=== PATIENT | female | born 1985 | race Caucasian/White ===

== ENCOUNTER 2016-09-09 22:15 | Inpatient (IN) | payer BC ==
[~2016-09-09] VITALS: Ht 165.1 cm; Wt 97.1 kg
--- NOTE | 2016-09-09 22:40 | NUR ---
CHAPERONED DR WHITE DURING PELVIC EXAM
[2016-09-09 23:05] LABS: UA SPECIFIC GRAVITY 1.025 (1.005-1.035); microscopic required? YES; urine erythrocyte 2+ (NEGATIVE)
[2016-09-09 23:12] LABS: BASOPHIL % 0.4 % (0-2); PLATELET COUNT 266 x10^3mcL (130-400)
[2016-09-09 23:13] LABS: RED CELL DISTRIBUTION WIDTH 14.9 % (11.5-14.5)
[2016-09-09 23:16] LABS: CALCIUM 8.3 mg/dL (8.5-10.1); CHLORIDE SERUM 107 mmol/L (98-107); CREATININE SERUM 0.9 mg/dL (0.6-1.0); GFR1 > 60 mL/min; GLUCOSE SERUM 73 mg/dL (74-106); POTASSIUM SERUM 3.3 mmol/L (3.5-5.1); SODIUM SERUM 141 mmol/L (136-145)
--- NOTE | 2016-09-09 23:19 | NUR ---
PT MEDICATED PER MD ORDERS FOR PAIN.
[2016-09-09 23:20] LABS: ALBUMIN 3.6 g/dL (3.4-5.0); ALKALINE PHOSPHATASE 77 U/L (46-116); ALT/SGPT 15 U/L (14-59); AMYLASE 66 U/L (25-115); AST/SGOT 14 U/L (15-37); BILIRUBIN TOTAL 0.1 mg/dL (0.20-1.00); LIPASE 200 IU/L (73-393); TOTAL PROTEIN, SERUM 7.8 g/dL (6.4-8.2)
--- NOTE | 2016-09-10 00:04 | NUR ---
PATIENT HAD CT AND RETURN TO THE ROOM EXPRESS SHE STILL HAS PAIN
--- NOTE | 2016-09-10 01:48 | NUR ---
PT MEDICATED PER MD ORDERS FOR PAIN
[2016-09-10] MEDS ORDERED: PROVENTIL0.09 MG/A1 INH (01:50)
--- NOTE | 2016-09-10 02:09 | NUR ---
REPORT WAS GIVEN TO ESTER. PATIENT TRANSPORTED TO ROOM 203B.
--- NOTE | 2016-09-10 02:30 | NUR ---
RECEIVED FROM ER VIA NNAMDI SIFUENTES. NO RESP DISTRESS NOTED. 118/69, HR 68, RR 18, O2SAT 96% ON RA, AFEBRILE. STS PAIN STARTED ON WEDNESDAY TO RLQ AREA. DENIES NAUSEA. REPORTS PAIN IS RELIEF AFTER PAIN MEDS GIVEN IN ER. TELE#[address] BRP WITH STEADY GAIT NOTED. S/L TO RAC FLUSHED PATENT. CALL LIGHT INSTRUCTED AND PLACED WITHIN EASY REACH, SIDERAILS UP X2.
--- NOTE | 2016-09-10 02:57 | NUR ---
DOCTOR GALLO AT BEDSIDE AT THIS TIME. IVF NS AT 100ML/HR INFUSING AT THIS TIME.
[2016-09-10 03:03] VITALS: BP 118/69
[2016-09-10 03:36] LABS: CHOLESTEROL/HDL RATIO 2.6; PHOSPHOROUS 3.7 mg/dL (2.5-4.9)
[2016-09-10 03:40] LABS: T3 TOTAL 1.18 ng/mL
[2016-09-10 03:41] LABS: FREE T4 0.93 ng/dL (0.76-1.46); FREE THYROXINE INDEX 3.1 ug/dL (1.4-4.5); T4(THYROXINE) 8.9 ug/dL (4.7-13.3)
--- NOTE | 2016-09-10 05:09 | NUR ---
NO ANY DISTRESS THROUGHOUT SHIFT. VSS. MORPHINE 2MG IV GIVEN X1 FOR RLQ WITH GOOD RELIEF. KEPT NPO. IVF NS CONTINUED AT 100ML/HR.
[2016-09-10 05:50] VITALS: BP 105/61
--- NOTE | 2016-09-10 06:50 | NUR ---
DOCTOR FARIA AT BEDSIDE. PATIENT IS INFORMED REGUARDING SURGERY THIS AM. PRE OP CHECK LIST DONE. S/L TO RAC FLUSHED PATENT.
[2016-09-10 07:17] VITALS: BP 102/61
--- NOTE | 2016-09-10 07:18 | NUR ---
REPORT RCD FROM YARI NORMAN. PATIENT TO GO FOR INCARCERATED INCISIONAL HERNIA REPAIR AT 8 AM. CURRENTLY UNDERGOING BILATERAL LOWER EXTREMITY ULTRASOUNDS. WILL MONITOR.
--- NOTE | 2016-09-10 07:45 | NUR ---
A/OX4, REPORTS SOME DIZZIENSS, THINKS DUE TO PAIN MEDICATIONS. SPEECH CLEAR, DENIES HEADACHE, EQUAL HAND KEYBOARDING CLERK, ANSWERS QUESTIONS APPROPRIATELY. TELE 6, DENIES CHEST PAIN. PALPABLE PERIPHERAL PULSES, NO EDEMA. LUNGS CTA RUBEN, REG RESPS, DENIES SHORTNESS OF BREATH. ABD OBESE, TENDER TO LOWER ABDOMEN, SLIGHT NAUSEA, NO VOMITING. BM YESTERDAY, NORMAL. NO COMPLAINTS. AMBULATORY. SKIN INTACT. 7/10 PAIN BUT LEAVING FOR SURGERY IN A FEW MINUTES, STATES TOLERABLE AT THIS TIME. SALINE LOCK TO [facility] FOR PICKUP FOR SURGERY. DR. MURRAY SAW PATIENT AND FAMILY, EXPLAINED PROCEDURE. PATIENT HAS NO QUESTIONS, SIGNED CONSENT, PLACED IN CHART. CALM AND COOPERATIVE. WILL MONITOR.
--- NOTE | 2016-09-10 08:11 | NUR ---
PATIENT PICKED UP BY [facility], [facility], FOR SURGICAL PROCEDURE. PATIENT SALINE LOCKED, FAMILY AT BEDSIDE.
--- NOTE | 2016-09-10 10:51 | NUR ---
RCD CALL FROM [facility] [place]. PATIENT UNDERWENT INCISIONAL HERNIA REPAIR, LOWER ABDOMEN. RCD 1550 LR, EBL 20, O2 SAT 97% ON ROOM AIR, 112/58, HR 66, RR 12. ISLAND DRESSING WITH WENDY, NO DRAIN. RCD 1 G ANCEF, ZOFRAN AT 1010 AM AND A TOTAL OF 1.5 MG DILAUDID, LAST AT 1032, PAIN 3/10 AT THIS TIME. WILL AWAIT RETURN TO UNIT.
[2016-09-10 13:37] VITALS: BP 106/55
--- NOTE | 2016-09-10 13:44 | NUR ---
DR. FARIA IN ROOM TO EVALUATE PATIENT. PATIENT WITH HEADACHE AND ABDOMINAL PAIN. NORCO GIVEN PER APR. WILL MONITOR.
--- NOTE | 2016-09-10 15:27 | NUR ---
PATIENT COMPLAINING OF FEELING LIKE SHE NEEDS TO URINATE, BUT UNABLE TO VOID. ASSISTED PATIENT ONTO BED BRAVO AND SHE TRIED FOR 15 MINUTES BUT UNABLE. SUGGESTED PATIENT ATTEMPT TO WALK TO BATHROOM AND TRY, BUT PATIENT FEELING FAINT. ASSISTED PATIENT TO POSITION OF COMFORT IN BED. DR. FARIA INFORMED OF ABOVE.
[2016-09-10 17:02] VITALS: BP 111/63
--- NOTE | 2016-09-10 17:19 | NUR ---
PATIENT WITH INCREASING PAIN AFTER WALKING TO BATHROOM. MORPHINE GIVEN PER MAR, ZOFRAN GIVEN FOR NAUSEA PER MAR AT SAME TIME. PATIENT FEELING LIGHT HEADED. DR. FARIA AWARE. PATIENT ABLE TO URINATE AT THIS TIME AND FEELS BETTER WITH LESS ABDOMINAL PRESSURE. PATIENT VOMITED VERY SMALL AMT OF BILE-COLORED VOMIT. PATIENT COMFORTABLE IN BED, AT BEDSIDE.
--- NOTE | 2016-09-10 19:09 | NUR ---
BEDSIDE REPORT GIVEN TO YARI NORMAN. PATIENT IS ASLEEP, REGULAR RESPIRATIONS. AT BEDSIDE. NS 100 MLHR TO RAC W/O COMPLICATIONS. BED LOW, CALL LIGHT WITHIN REACH. CARE ENDORSED.
--- NOTE | 2016-09-10 19:10 | NUR ---
SEEN ASLEEP WITH EYES CLOSE, BREATHING EASY AND EVEN ON ROOM AIR. NSR ON TELE#6 MONITOR. HOB ELEVATED AT 45 DEG. LOWER ABDOMINAL DRESSING CDI. ON FULL LIQUID DIET. ALREADY VOIDED PER RN NORMAN REPORTED. BRP WITH MINIMAL ASSISTED. IVF NS INFUSING WELL TO RAC IV SITE. SCD TO BLE MAINTAINED. CALL LIGHT PLACED WITHIN EASY REACH, SIDERAILS UP X2.
[2016-09-10 21:33] VITALS: BP 102/56
--- NOTE | 2016-09-10 22:20 | NUR ---
REPORTS PAIN TO OP SITE WITH NAUSEA. PERCOCET PO X1 TAB AND ZOFRAN 4MG IVP GIVEN. WILL CONTINUE TO MONITOR.
[2016-09-11 05:13] VITALS: BP 106/63
--- NOTE | 2016-09-11 06:28 | NUR ---
SLEPT PERIODICALLY THROUGHOUT SHIFT. AFEBRILE. BRP. VOIDED X4. STS PASSING SOME GAS AND BURPING. PERCOCET PO GIVEN X2 FOR OPERATIVE SITE PAIN WITH GOOD RELIEF. SURGICAL DRESSING WITH ABD BINDER IN PLACE.
[2016-09-11 07:19] LABS: PLATELET COUNT 248 x10^3mcL (130-400)
[2016-09-11 07:26] LABS: BASOPHIL % 0 % (0-2); RED CELL DISTRIBUTION WIDTH 14.6 % (11.5-14.5)
[2016-09-11 07:38] LABS: CALCIUM 8.2 mg/dL (8.5-10.1); CARBON DIOXIDE 27.4 mmol/L (21-32); CHLORIDE SERUM 104 mmol/L (98-107); CREATININE SERUM 0.7 mg/dL (0.6-1.0); GFR1 > 60 mL/min; GLUCOSE SERUM 98 mg/dL (74-106); PHOSPHOROUS 3.3 mg/dL (2.5-4.9); POTASSIUM SERUM 3.5 mmol/L (3.5-5.1); SODIUM SERUM 139 mmol/L (136-145)
--- NOTE | 2016-09-11 07:45 | NUR ---
RECEIVED THE PATIENT AWAKE AND ORIENTED TO PERSON, PLACE AND TIME. PATIENT DENIED PAIN AT THIS TIME (PERCOCET 1 TAB WAS GIVEN TO THE PATIENT AT 0600 AM BY NOCS). IVF NS VIA H/L TO RAC. TELE # 6 READS SINUS RHYTHMS. ABD. INCISION WITH ISLAND DRESSING IN PLACE (SOME DRY STAINED DRAINAGE NOTED) AND ABD. BINDER IN PLACE. CALL LIGHT WITHIN REACH. SIDE RAILS UP X2.
--- NOTE | 2016-09-11 08:12 | NUR ---
DR. BRICE AND THE TEAM WERE MAKING ROUND TO SEE THE PATIENT. THE CARE PLAN WAS EXPLAINED TO THE PATIENT. THE PATIENT AGREED WITH THE PLAN.
[2016-09-11 09:51] VITALS: BP 109/66
--- NOTE | 2016-09-11 13:06 | NUR ---
AT 1141, THE PATIENT C/O THROBBING 7/10 TO INCISIONAL SITE AT ABD BECAUSE SHE JUST WENT TO BRP. PERCOCET 1TAB WAS ADMISTERED TO THE PATIENT. AT 1306, REASSESSING THE PAIN: THE PATIENT STATED THE PAIN WAS BETTER AND TOLERABLE AT THIS TIME 3/10. CONTINUE TO MONITOR.
[2016-09-11 13:40] VITALS: BP 118/64
[2016-09-11 18:12] VITALS: BP 116/69
--- NOTE | 2016-09-11 18:51 | NUR ---
THE PATIENT GOT OUT OF BED AND USED BRP DURING THE SHIFT. THE PATIENT TOLERATED WELL WITH CCHO DIET; DENIED NAUSEA/VOMITING OR ABD. PAIN AFTER HAVING MEALS. PATIENT HAS BEEN BURPING.
--- NOTE | 2016-09-11 19:38 | NUR ---
PT IS A/O X4, VERBAL RESPONSIVE, ABLE TO TELL WHAT SHE NEEDS. LUNG SOUND CLEAR BILATERAL, NO COUGH, NO SOB, PT IS ON TELE 6, NSR, DENY ANY CHEST PAIN OR DISCOMFORT, HYPOACTIVE BOWEL SOUND PRESENT ALL 4 QUADRANTS, NO DISTENTION, S/P HERNIA REPAIRMENT AT LOW ABD. DRESSING INTACT, NO BLEEDING, NO DISCHARGED NOTED, PT C/O PAIN AT SURGICAL SIDE, 8/10, PRECOCET PO WAS GIVEN, PEDAL PULSE PRESENT BOTH FEET, NO EDEMA NOTED, IV AT RIGHT AC, NO LEAKING, NO INFILTRATION. ALL ADLS ASSIST, ALL NEED MET, CALL LIGHT IN REACH, WILL CONTINUE TO MONITOR.
[2016-09-11 20:53] VITALS: BP 122/71
[2016-09-12 00:24] LABS: AMPHETAMINE QUAL UR NONE DETECTED (NEG <=1000)
--- NOTE | 2016-09-12 05:11 | NUR ---
PT IS AWAKE, VERBAL RESPONSIVE, DENY ANY RESPIRATORY DISTRESS, DENY ANY PAIN OR DISCOMFORT AT THIS MOMENT, IV AT RIGHT FA, NO LEAKING, NO INFILTRATION. ALL ADLS ASSIST,ALL NEED MET, CALL LIGHT IN REACH, WILL CONTINUE TO MONITOR.
[2016-09-12 05:27] VITALS: BP 119/70
[2016-09-12 06:09] LABS: BASOPHIL % 0.4 % (0-2); PLATELET COUNT 216 x10^3mcL (130-400)
[2016-09-12 06:31] LABS: CALCIUM 7.9 mg/dL (8.5-10.1); CARBON DIOXIDE 29.9 mmol/L (21-32); CHLORIDE SERUM 105 mmol/L (98-107); CREATININE SERUM 0.8 mg/dL (0.6-1.0); GFR1 > 60 mL/min; GLUCOSE SERUM 84 mg/dL (74-106); MAGNESIUM 1.7 mg/dL (1.8-2.4); PHOSPHOROUS 3.2 mg/dL (2.5-4.9); POTASSIUM SERUM 3.5 mmol/L (3.5-5.1); SODIUM SERUM 139 mmol/L (136-145)
--- NOTE | 2016-09-12 07:20 | NUR ---
RECEIVED PT. IN BED A/A/O X4. NO SOB, NO N/V NOTED. DENIES ANY PAIN AT THIS TIME. NS RUNNING AT 60 CC/HR. VIA IV H/L AT R AC. ABD. BINDER IN PLACE. SCD TO BLE MAINTAINED. BED IN LOW POS., CALL LIGHT WITHIN REACH. SIDE RAILS UP X3. PT. STATED SHE HAS BEEN PASSING GAS.
[2016-09-12 09:09] VITALS: BP 116/61
--- NOTE | 2016-09-12 09:15 | NUR ---
DR. COLIN, THE RESIDENTS, CHARGE NURSE, AND ATTENDING NURSE AT BEDSIDE. CAREPLAN DISCUSSED WITH PT. ALL QUESTIONS ANSWERED.
[2016-09-12 10:27] VITALS: Ht 165.1 cm; Wt 97.1 kg
--- NOTE | 2016-09-12 14:00 | NUR ---
CLEANSED ABD. INCISION WITH NS; DRY DRESSINGS APPLIED OVER ABD. INCISION. PHOTOGRAPH OF ABD. INCISION TAKEN.
[2016-09-12 14:15] VITALS: BP 116/65
--- NOTE | 2016-09-12 16:41 | NUR ---
REMAINS IN STABLE CONDITION AT THIS TIME. NO ACUTE DISTRESS NOTED.
[2016-09-12] MEDS ORDERED: SIMETHICONE80 MG CH (17:32)
[2016-09-12 17:46] VITALS: BP 106/68
[2016-09-12] MEDS ORDERED: NOR10T PO (17:59)
--- NOTE | 2016-09-12 19:29 | NUR ---
PT. IS TO BE DISCHARGED HOME TONIGHT. AWAITING FOR PERCOCET PRESCRIPTION (DR. SAUNDERS MADE AWARE). REPORT GIVEN TO MADHU HUANG RN.
--- NOTE | 2016-09-12 19:40 | NUR ---
RECEIVED PT IN BED AWAKE, ALERT,ORIENTED X4. NO SOB ON RA. PT W/ DRESSING TO ABDOMEN ABDL BINDER IN PLACE. SHE HAS NO C/O PAIN AT THIS TIME. PT W/ ORDER FOR DISCHARGE TONIGHT AND WAITING FOR PRESCRIPTION FROM THE DOCTOR.
--- NOTE | 2016-09-12 20:54 | NUR ---
PT'S IV TO RT AC REMOVED. TELE MONITOR WAS REMOVED. PT SIGNED ALL PAPARES. SHE WAS BROUGHT DOWN VIA WHEELCHAIR BY SPORTS RECRUITER AND WAS ACCOMPNAIED BY PT'S . PT IN STABLE CONDITION UPON DISCHARGE.
== END 2016-09-13 00:30 | disposition home or self-care (01) | DRG 355 ==
LOC: ED 22:15 → DU 09-10 01:48
PROVIDERS: Emergency Medicine; Surgery; ADMIT Family Medicine
PROC: 0WQF0ZZ Repair Abdominal Wall, Open Approach (ICD-10-PCS; principal; 2016-09-10 08:30)
DX: K43.0 Incisional hernia with obstruction, without gangrene (principal); E11.9 Type 2 diabetes mellitus without complications; E87.6 Hypokalemia; J45.909 Unspecified asthma, uncomplicated; E66.9 Obesity, unspecified; D64.9 Anemia, unspecified; I10 Essential (primary) hypertension; Z68.35 Body mass index [BMI] 35.0-35.9, adult
CPT/HCPCS: 82962; 83880; 84439; 94150; J0330; J0690; J1170; J1885; J2250; J2270; J2405; J2704; J2710; J3010; J3490; J7030; J7120; J7613; Q0092; Q9967